=== PATIENT | male | born 1970 | race Caucasian/White ===

== ENCOUNTER 2020-01-22 16:09 | Emergency (ER) | payer SELFPAY ==
[2020-01-22] MEDS ORDERED: HYDROCHLOROTHIAZIDE 25 MG TABLET PO ONE (16:43)
[2020-01-22] MEDS ORDERED: LISINOPRIL 10 MG TABLET PO ONE (16:43)
--- NOTE | 2020-01-22 17:14 | ER Document Report ---
ED General - General Chief Complaint: Blood Pressure Problem Stated Complaint: BLOOD PRESSURE PROBLEM Time Seen by Provider: 01/22/20 16:25 Primary Care Provider: LUIS FELIPE VARGAS MD [ACTIVE STAFF] - Follow up as needed CULLEN AUGUSTE MD [ACTIVE STAFF] - Follow up as needed Notes: CHIEF COMPLAINT: Multiple complaints HPI: 49-year-old male with a history of hypertension who states he stopped taking his blood pressure medications 5 or 6 months ago because he does not like to take his medications presenting for 1 week of intermittent sharp chest discomfort on the left side. No shortness of breath. No swelling of the extremities. 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 Has not had cough. No fever. Patient was seen at an urgent care and referred over to the emergency department for evaluation ROS: See HPI - all other systems were reviewed and are otherwise negative Constitutional: no fever Eyes: no drainage, no blurred vision ENT: no runny nose, no sore throat Cardiovascular: + chest pain Resp: no SOB, no cough GI: no vomiting, no diarrhea, no abdominal pain : no dysuria Integumentary: + rash Allergy: no hives Musculoskeletal: no extremity pain or swelling Neurological: no numbness/tingling, no weakness MEDICATIONS: I agree with the patient medications as charted by the RN. ALLERGIES: I agree with the allergies as charted by the RN. PAST MEDICAL HISTORY/PAST SURGICAL HISTORY: Reviewed and agree as charted by RN. SOCIAL HISTORY: Reviewed and agree as charted by RN. FAMILY HISTORY: No significant familial comorbid conditions directly related to patient complaint EXAM: Reviewed vital signs as charted by RN. CONSTITUTIONAL: Alert and oriented and responds appropriately to questions. Well-appearing; well-nourished, no acute distress HEAD: Normocephalic; atraumatic EYES: PERRL; Conjunctivae clear, sclerae non-icteric ENT: normal nose; no rhinorrhea; moist mucous membranes; pharynx without lesions noted, no uvula edema or deviation, no tonsillar hypertrophy, phonation normal NECK: Supple without meningismus; non-tender; no cervical lymphadenopathy, no masses CARD: RRR; no murmurs, no clicks, no rubs, no gallops; symmetric distal pulses RESP: Normal chest excursion without splinting or tachypnea; breath sounds clear and equal bilaterally; no wheezes, no rhonchi, no rales, pulse oximetry 97% on room air not hypoxic ABD/GI: Normal bowel sounds; non-distended; soft, non-tender, no rebound, no guarding; no palpable organomegaly or masses. BACK: The back appears normal and is non-tender to palpation, there is no CVA tenderness EXT: Normal ROM in all joints; non-tender to palpation; no cyanosis, no effusions, no edema SKIN: Normal color for age and race; warm; dry; good turgor; raised grouped vesicles in a linear fashion around the left lower chest wall on both the anterior lateral and posterior chest wall. NEURO: Moves all extremities equally; Motor and sensory function intact PSYCH: The patient's mood and manner are appropriate. Grooming and personal hy giene are appropriate. 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 Describes it as a sharp electricity type sensation. Also complaining of a stabbing sensation in the left chest wall. Was evaluated at urgent care. On further questioning patient does state he started a rash 2 days ago. On examination of the chest wall he appears to have shingles this is likely the source of his chest discomfort. He is significantly hypertensive today, he states that he stops his blood pressure medications because he does not like the way they make him feel. He is on lisinopril normally. 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 I will obtain 1 set of screening cardiac labs on the patient including an EKG and chest x-ray given his hypertension today. I will give the patient a dose of his lisinopril but also add hydrochlorothiazide given his hypertension today. Patient will be prescribed lisinopril and hydrochlorothiazide today with instruction to follow-up closely with PCP. He will need close management of his blood pressure. Patient will be placed on driving restriction he is aware of this given his blood pressure that is uncontrolled as well as shingles treatment with pain medication he is aware that he should not drive if taking narcotics for pain. I will prescribe prednisone, acyclovir, Lidoderm and Percocet for pain for his shingles. If patient's cardiac work-up and lab work are negative anticipate discharge home with a referral to cardiology as well. As I believe that his chest pain is likely from his shingles as it is reproducible and in the area of his rash will only obtain 1 set of cardiac markers today Past Medical History - Social History Smoking Status: Current Every Day Smoker Family History: Reviewed & Not Pertinent Physical Exam - Vital signs Vitals: Temp Pulse Resp BP Pulse Ox 98.2 F 69 20 172/112 H 96 01/22/20 16:13 01/22/20 16:13 01/22/20 16:13 01/22/20 16:13 01/22/20 16:13 Course - Re-evaluation Re-evalutation: 01/22/20 18:34 Patient lab work does not show acute emergent abnormalities. Will refer patient to both medicine and cardiology. Will place patient on previous medications as well as restart his blood pressure medications. Patient was advised to not drive if taking narcotics for pain. 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 - Vital Signs Vital signs: Temp Pulse Resp BP Pulse Ox 98.2 F 69 20 172/112 H 96 01/22/20 16:13 01/22/20 16:13 01/22/20 16:13 01/22/20 16:13 01/22/20 16:13 - Laboratory Result Diagrams: 01/22/20 17:15 01/22/20 17:15 Laboratory results interpreted by me: 01/22/20 17:15 Sodium 136.6 L Potassium 3.5 L Discharge - Discharge Clinical Impression: HTN (hypertension) Qualifiers: Hypertension type: essential hypertension Qualified Code(s): I10 - Essential (primary) hypertension Chest pain Qualifiers: Chest pain type: other chest pain Qualified Code(s): R07.89 - Other chest pain Shingles Qualifiers: Herpes zoster complications: without complications Qualified Code(s): B02.9 - Zoster without complications Condition: Stable Disposition: HOME, SELF-CARE Instructions: Chest Pain of Unclear Cause ([facility]), Shingles ([facility]) Additional Instructions: Follow-up both with cardiology and medicine providers for further evaluation and management of symptoms. You were noted to have shingles today. Use the Lidoderm patches over the wound areas to help control some of the pain and discomfort. Do not drive if taking narcotics for pain. Make sure you are taking your blood pressure medications daily as prescribed, you will not pass a DOT physical with uncontrolled blood pressure. Prescriptions: Acyclovir [Acyclovir 400 mg Tablet] 800 mg PO QID #40 tablet Prednisone [Deltasone 20 mg Tablet] 2 tab PO DAILY 5 Days #10 tablet Hydrochlorothiazide 12.5 mg PO DAILY #30 tablet Lidocaine [Lidoderm 5% (700 mg) Transdermal Patch] 1 patch TP DAILY #30 adh..patch Lisinopril 20 mg PO DAILY #30 tablet Oxycodone HCl/Acetaminophen [Percocet 5-325 mg Tablet] 1 tab PO Q4H PRN #15 tab PRN Reason: Referrals: LUIS FELIPE VARGAS MD [ACTIVE STAFF] - Follow up as needed CULLEN AUGUSTE MD [ACTIVE STAFF] - Follow up as needed
--- NOTE | 2020-01-22 17:17 | RADIOLOGY REPORT (SQ) ---
EXAM DESCRIPTION: CHEST SINGLE VIEW IMAGES COMPLETED DATE/TIME: 01/22/2020 5:05 pm REASON FOR STUDY: chest pain COMPARISON: None. NUMBER OF VIEWS: One view. TECHNIQUE: Single frontal radiographic view of the chest acquired. LIMITATIONS: None. FINDINGS: LUNGS AND PLEURA: Low lung volumes with elevation/eventration of the left hemidiaphragm. Lungs are clear. No pneumothorax or pleural fluid. MEDIASTINUM AND HILAR STRUCTURES: No masses. No contour abnormality. HEART AND VASCULAR STRUCTURES: Normal size. No evidence for failure. BONES: No acute findings. HARDWARE: None in the chest. OTHER: No other significant finding. IMPRESSION: LOW LUNG VOLUMES. NO SIGNIFICANT RADIOGRAPHIC FINDING IN THE CHEST. TECHNICAL DOCUMENTATION: JOB ID: [id number] 2010 [employer]- All Rights Reserved Reading location - IP/workstation name: [email or web address]
[2020-01-22 17:30] LABS: ABSOLUTE EOSINOPHILS # (AUTO) 0.1 10^3/uL (0.0-0.6); ABSOLUTE LYMPHOCYTES (AUTO) 1.8 10^3/uL (0.5-4.7); TOTAL CELLS COUNTED % (AUTO) 100 %
[2020-01-22 17:40] LABS: ABSOLUTE MONOCYTES (AUTO) 0.5 10^3/uL (0.1-1.4); ABSOLUTE NEUT (AUTO) 5.6 10^3/uL (1.7-8.2); BASOPHILS % (AUTO) 0.3 % (0-2); EOSINOPHILS % (AUTO) 1.1 % (0-6); HEMATOCRIT 45.4 % (37.9-51.0); HEMOGLOBIN 16.1 g/dL (13.5-17.0); LYMPHOCYTES % (AUTO) 22.7 % (13-45); MEAN CORPUSCULAR HEMOGLOBIN 30.4 pg (27.0-33.4); MEAN CORPUSCULAR HGB CONC 35.5 g/dL (32.0-36.0); MEAN CORPUSCULAR VOLUME 86 fl (80-97); MONOCYTES % (AUTO) 5.7 % (3-13); PLATELET COUNT 240 10^3/uL (150-450); RED BLOOD COUNT 5.29 10^6/uL (4.35-5.55); RED CELL DISTRIBUTION WIDTH 13.8 % (11.5-14.0); SEGMENTED NEUTROPHILS % (AUTO) 70.2 % (42-78)
[2020-01-22 17:57] LABS: ALBUMIN 4.3 g/dL (3.5-5.0); ALKALINE PHOSPHATASE 104 U/L (38-126); ANION GAP 8 (5-19); ASPARTATE AMINO TRANSFERASE 29 U/L (17-59); BILIRUBIN,TOTAL 0.8 mg/dL (0.2-1.3); BLOOD UREA NITROGEN 11 mg/dL (7-20); CARBON DIOXIDE 28 mmol/L (22-30); CHLORIDE 101 mmol/L (98-107); GLUCOSE 91 mg/dL (75-110); POTASSIUM 3.5 mmol/L (3.6-5.0); TOTAL PROTEIN 7.6 g/dL (6.3-8.2)
[2020-01-22] MEDS ORDERED: ACYCLOVIR 800 MG TABLET PO ONE (18:33)
[2020-01-22 19:17] VITALS: BP 182/116
--- NOTE | 2020-01-22 22:41 | EKG REPORT ---
SEVERITY:- ABNORMAL ECG - SINUS RHYTHM NONSPECIFIC INTRAVENTRICULAR CONDUCTION DELAY : Confirmed by: Tamiko Johnston 22-Jan-2020 22:41:15
== END 2020-01-22 19:19 | disposition home or self-care (01) ==
LOC: ER 16:09
DX: I10 Essential (primary) hypertension (principal); T46.4X6A Underdosing of angiotensin-converting-enzyme inhibitors, initial encounter; Z91.128 Patient's intentional underdosing of medication regimen for other reason; Z91.14 Patient's other noncompliance with medication regimen; B02.9 Zoster without complications; R07.9 Chest pain, unspecified; Z03.818 Encounter for observation for suspected exposure to other biological agents ruled out
CPT/HCPCS: 93005; 99284; 36415; 85025; 87635; 80053; 84484; 71045; 93010; J3490